=== PATIENT | male | born 1985 | race African-American/Black ===

== ENCOUNTER 2018-09-07 02:46 | Emergency (ER) | payer SELFPAY ==
[2018-09-07 02:58] VITALS: BP 148/90; PULSE 72; TEMP 97.6; BMI 31.1
--- NOTE | 2018-09-07 03:01 | PDOC ---
History of Present Illness - General Chief Complaint: Pain, Acute Stated Complaint: PULLED OUT BACK Time Seen by Provider: 09/07/18 03:01 History Source: Patient Exam Limitations: No Limitations - History of Present Illness Initial Comments: 09/07/18 03:11 HPI 33 YOM with h/o clubbed foot presenting with lower back pain since yesterday. 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 yesterday he moved too quickly and pulled his lower back. since then, moderate to severe "pulling" and "stretching" pain in his lower back that radiates to his left buttock, exacerbated by walking, movement, coughing or laughing. 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 no radiation down leg, no urinary retention or incontinence, weakness or paresthesias, AP or constitutional symptoms. Allergies: NKA Past Medical History: clubbed foot Social history: +smoker. No alcohol. No illicit drugs. Surgical history: clubbed foot surgery ROS Constitutional: no fevers or chills. Gastrointestinal: no abdominal pain, nausea or vomiting. Genitourinary: no incontinence or retention, urinary sx MUSCULOSKELETAL: No joint pain and swelling. +back pain. SKIN: no redness or skin changes, no discharge, no rash. No wounds. NEUROLOGIC: No headache, dizziness, LOC or altered mental status. No weakness, numbness or tingling. Allergic/Immunologic: no allergies All other systems reviewed and negative, or as documented in HPI. PE: General: NAD, well appearing Abdomen: nontender, nondistended. Vascular: 2+ DP pulses symmetric and equal. Back: +lumbar TTP, +spasms, no stepoffs, FROM Focused MSK/Neuro Exam notable for soft compartments, Cap refill <2 sec. Proximal and distal strength 5/5, eating disorder specialist strength 5/5 - equal and symmetric. Plantar flexion and dorsiflexion 5/5. FROM. Sensation grossly intact to light touch. Neg SLR. Skin: color normal color, warm and well perfused. 09/07/18 03:16 Past History - Past Medical History Allergies/Adverse Reactions: Allergies Allergy/AdvReac Type Severity Reaction Status Date / Time No Known Allergies Allergy Verified 09/07/18 02:47 Home Medications: Ambulatory Orders Amlodipine Besylate [Norvasc -] 5 mg PO DAILY 02/27/19 Cyclobenzaprine HCl [Flexeril 10 mg] 10 mg PO TID PRN #15 tablet 09/07/18 Ibuprofen 600 mg PO QID PRN #20 tablet 09/07/18 Lidocaine 5% Patch [Lidoderm Patch -] 1 patch TP DAILY PRN #7 patch 09/07/18 COPD: No HTN: Yes - Suicide/Smoking/Psychosocial Hx Smoking History: Current every day smoker Have you smoked in the past 12 months: Yes Number of Cigarettes Smoked Daily: 10 Information on smoking cessation initiated: Yes Hx Alcohol Use: No Drug/Substance Use Hx: No *Physical Exam - Vital Signs Last Vital Signs Temp Pulse Resp BP Pulse Ox 97.6 F 72 18 148/90 99 09/07/18 02:50 09/07/18 02:50 09/07/18 02:50 09/07/18 02:50 09/07/18 02:50 Moderate Sedation - Procedure Monitoring Vital Signs: Procedure Monitoring Vital Signs Temperature 97.6 F 09/07/18 02:50 Pulse Rate 72 09/07/18 02:50 Respiratory Rate 18 09/07/18 02:50 Blood Pressure 148/90 09/07/18 02:50 O2 Sat by Pulse Oximetry (%) 99 09/07/18 02:50 Medical Decision Making - Medical Decision Making 09/07/18 03:16 hpi as documented VS wnl. DDx back pain: back strain, lumbago, sciatica, radiculopathy, spinal stenosis. Muscle spasm. Lumbar radiculopathy. Clinically doubt based on exam and clinical history: cord compression or cauda equina, with low suspicion and NO red flag sx such as age>50, malignancy, weight loss, trauma, fevers, IVDU, lumbar/spinal procedures, bowel and bladder incontinence/retention, urinary sx, neurologic deficits or changes. treat with toradol. exam benign, +lumbar TTP. most likely lumbar radiculopathy/strain with frequent bending/twisting. driving home, rx muscle relaxants prn with lidoderm patch and otc analgesia, as he has not tried yet. told to take tyl/motrin prn for pain control Q6hr. able to ambulate no imaging indicated, no trauma. Pt to be discharged in stable condition. Patient and family made aware of impression and plan, return precautions discussed (including but not limited to worsening pain or symptoms), fevers, or signs of infection, chest pain, respiratory distress, inability to tolerate oral intake, dehydration, syncope, or neurologic changes). Follow up with PMD and/or specialist as recommended, follow up information provided, take medications as instructed for duration of time. continue with supportive care, avoid triggers and precipitants. All questions answered to patient's satisfaction and expressed understanding and comfort with this. Patient does not suffer from an acute life-threatening medical condition at this time she is safe for outpatient follow-up. 09/07/18 03:16 09/07/18 03:18 *DC/Admit/Observation/Transfer Diagnosis at time of Disposition: Back pain Qualifiers: Back pain location: low back pain Chronicity: acute Back pain laterality: unspecified Sciatica presence: without sciatica Qualified Code(s): M54.5 - Low back pain - Discharge Dispostion Disposition: HOME Condition at time of disposition: Stable Decision to Admit order: No - Prescriptions Prescriptions: Cyclobenzaprine HCl [Flexeril 10 mg] 10 mg PO TID PRN #15 tablet PRN Reason: Muscle Spasms Ibuprofen 600 mg PO QID PRN #20 tablet PRN Reason: Pain Lidocaine 5% Patch [Lidoderm Patch -] 1 patch TP DAILY PRN #7 patch PRN Reason: Pain - Referrals Referrals: [facility] [Provider Group] [facility] [Provider Group] Fox Duarte MD [Staff Physician] - Chi Webster MD [Staff Physician] - - Patient Instructions Printed Discharge Instructions: DI for Low Back Pain Additional Instructions: you most likely have musculoskeletal strain avoid heavy lifting or strenuous activity but you should practice range of motion exercises to maintain mobility rest and take tylenol as needed for mild to moderate pain. flexeril is a muscle relaxant, take three times a day as needed may cause sleepiness, do not drive or operate machinery. topical lidoderm patch to the area affected, 12 hours on and 12 hours off.. May take ibuprofen/tylenol as needed, over the counter. continue with range of motion exercises. Rest ice and elevate affected extremity Follow up with primary doctor/specialist services provided as well. orthopedics referrals given. This should heal over the next 3-5 days. - Post Discharge Activity Forms/Work/School Notes: Back to Work
[2018-09-07] MEDS ORDERED: LIDOCAINE 5% TOPICAL PATCH TP ONE (03:09)
[2018-09-07] MEDS ORDERED: LIDOCAINE 5% TOPICAL PATCH ONE (03:10)
[2018-09-07] MEDS ORDERED: KETOROLAC TROMETHAMINE 60 MG/2 ML VIAL IM ONE (03:10)
[2018-09-07] MEDS ORDERED: KETOROLAC TROMETHAMINE 60 MG/2 ML VIAL ONE (03:10)
[2018-09-07] MEDS ORDERED: LIDOCAINE PATCH REMOVAL MC SCH (22:00)
== END 2018-09-07 03:27 | disposition home or self-care (01) ==
LOC: FER 02:46
PROC: 3E0233Z Introduction of Anti-inflammatory into Muscle, Percutaneous Approach (ICD-10-PCS; principal; 2018-09-07)
DX: M54.5 Low back pain (principal); F17.210 Nicotine dependence, cigarettes, uncomplicated; X58.XXXA Exposure to other specified factors, initial encounter; Y93.89 Activity, other specified; Y92.9 Unspecified place or not applicable; Y99.9 Unspecified external cause status; Y99.0 Civilian activity done for income or pay
CPT/HCPCS: 99281-25